=== PATIENT | female | born 1950 | race Caucasian/White ===

== ENCOUNTER → 2016-12-12 | Outpatient (CLI) | payer OTHER | LOC: RAD 09:54 | DX: J98.4 Other disorders of lung (principal) ==

== ENCOUNTER → 2017-01-01 | Outpatient (CLI) | payer OTHER | LOC: CAT 10:10 | DX: J47.9 Bronchiectasis, uncomplicated (principal); J98.4 Other disorders of lung; K80.20 Calculus of gallbladder without cholecystitis without obstruction ==